=== PATIENT | male | born 1975 | race African-American/Black ===

== ENCOUNTER 2021-04-07 15:56 | Emergency (ER) | payer MEDICAID ==
[~2021-04-07] VITALS: Ht 175.3 cm; Wt 91.0 kg
[2021-04-07] MEDS ORDERED: HYDROCODONE/ACETAMINOPHEN 5/325MG TABLET PO ONE (17:30)
[2021-04-07] MEDS ORDERED: IBUPROFEN 600MG TABLET PO ONE (17:30)
[2021-04-07] MEDS ORDERED: HYDR-4001 MT ×2 (19:21→19:22)
[2021-04-07] MEDS ORDERED: IBUP-2028 MT ×2 (19:21→19:22)
[2021-04-07 20:09] VITALS: BP 122/73
== END 2021-04-07 20:53 | disposition home or self-care (01) ==
LOC: ER 15:56
DX: S83.8X1A Sprain of other specified parts of right knee, initial encounter (principal); M79.661 Pain in right lower leg; M25.552 Pain in left hip; M25.551 Pain in right hip; R03.0 Elevated blood-pressure reading, without diagnosis of hypertension; M21.331 Wrist drop, right wrist; W01.0XXA Fall on same level from slipping, tripping and stumbling without subsequent striking against object, initial encounter; Y93.01 Activity, walking, marching and hiking; Y92.59 Other trade areas as the place of occurrence of the external cause; Z86.59 Personal history of other mental and behavioral disorders
CPT/HCPCS: 73521; 73552; 73560; 73590; 99284